=== PATIENT | male | born 1990 | race Caucasian/White ===

== ENCOUNTER 2018-05-22 19:31 | Emergency (ER) | payer SELFPAY ==
[~2018-05-22] VITALS: Ht 177.8 cm; Wt 81.7 kg
[2018-05-22 20:38] LABS: MICROSCOPIC INDICATED
[2018-05-22 20:41] LABS: CULTURE INDICATED? NO
[2018-05-22 21:40] VITALS: BP 116/74
== END 2018-05-22 21:49 | disposition home or self-care (01) ==
LOC: ED 21:44
DX: L72.0 Epidermal cyst (principal); F17.200 Nicotine dependence, unspecified, uncomplicated; F41.1 Generalized anxiety disorder
CPT/HCPCS: 76870; 81001; 99285; 99406